=== PATIENT | male | born 1975 | race Caucasian/White ===

== ENCOUNTER 2021-01-24 18:20 | Inpatient (IN) | payer OTHER ==
[~2021-01-24] VITALS: Ht 177.8 cm; Wt 77.1 kg
[~2021-01-24 18:20] MED LIST: DICY20TA4 PO; LEVE500T8 PO; MULT-658 PO
[2021-01-24] MEDS ORDERED: LORazepam 2 MG/ML, 1ML ONE ×4 (18:59→19:57)
[2021-01-24] MEDS ORDERED: SODIUM CHLORIDE 0.9% 1,000ML IVBOLUS ONE (19:00)
[2021-01-24] MEDS ORDERED: THIAMINE 100 MG/ML, 2ML ONE (19:00)
[2021-01-24] MEDS ORDERED: THIAMINE 100 MG/ML, 2ML IM ONE (19:00)
[2021-01-24] MEDS ORDERED: SODIUM CHLORIDE FLUSH 10ML SYR IVF ONE (19:00)
[2021-01-24 19:04] LABS: BASOPHILS % (AUTO) 1 % (0-1); EOSINOPHILS % (AUTO) 1 % (1-7); LYMPHOCYTES % (AUTO) 29 % (22-44); MEAN CORPUSCULAR HEMOGLOBIN 33.3 pg (27.5-34.5); MEAN CORPUSCULAR HGB CONC 34.6 g/dL (33.2-36.2); MEAN PLATELET VOLUME 8.2 fL (7.4-10.4); MONOCYTES % (AUTO) 17 % (2-9); NEUTROPHILS % (AUTO) 52 % (42-75); PLATELET COUNT 106 x10^3/uL (130-400); RED BLOOD COUNT 3.89 x10^6/uL (4.38-5.82); RED CELL DISTRIBUTION WIDTH 13.8 % (9.4-14.8)
[2021-01-24] MEDS: LORazepam 2 MG/ML, 1ML IVPush PRN ×4 (19:07→20:04)
--- NOTE | 2021-01-24 19:20 | NUR ---
report to CRUZITO Hatch at bedside. deputy at bedside x 2.
--- NOTE | 2021-01-24 19:45 | NUR ---
Pt states "it's been 5 years" since he got here.
--- NOTE | 2021-01-24 19:58 | NUR ---
Pt [place] "[place]" when asked where he is.
--- NOTE | 2021-01-24 20:05 | NUR ---
Pt states "Lorna," when asked what his name is. MD Edmond made aware that 4/4 ativan doses administered and pt is extremely tremulous and tachy at 130s. No new orders.
--- NOTE | 2021-01-24 20:12 | NUR ---
MD Edmond back to bedside.
[2021-01-24] MEDS ORDERED: DIAZEPAM 5 MG/ML, 2ML ONE (20:16)
[2021-01-24] MEDS ORDERED: DIAZEPAM 5 MG/ML, 2ML IV ONE (20:30)
--- NOTE | 2021-01-24 20:32 | NUR ---
MD Edmond made aware of CIWA of 36.
--- NOTE | 2021-01-24 20:33 | NUR ---
No new orders.
[2021-01-24 20:58] LABS: ALANINE AMINOTRANSFERASE 107 U/L (12-78); ALBUMIN 3.3 g/dL (3.4-5.0); ANION GAP 6 mmol/L (5-15); CALCIUM 8.1 mg/dL (8.5-10.1); CHLORIDE 91 mmol/L (98-107); CREATININE 1.02 mg/dL (0.7-1.3)
[2021-01-24] MEDS ORDERED: PHENOBARBITAL SODIUM 730 MG in SODIUM CHLORIDE 0.9% 50 ML IV ONE (21:00)
[2021-01-24 21:01] LABS: ALKALINE PHOSPHATASE 101 U/L (45-117); BILIRUBIN,TOTAL 0.9 mg/dL (0.2-1.0)
--- NOTE | 2021-01-24 21:05 | NUR ---
MD Roth at bedside for eval.
--- NOTE | 2021-01-24 21:15 | NUR ---
MD Roth made aware that lab values have resulted.
--- NOTE | 2021-01-24 21:22 | NUR ---
Meds requested from pharmacy.
[2021-01-24] MEDS ORDERED: PHENOBARBITAL ETOH DETOX PER PHARMACY MC PRN (21:30)
[2021-01-24] MEDS ORDERED: PROMETHAZINE 25 MG/ML, 1ML IM PRN (21:30)
[2021-01-24] MEDS ORDERED: THIAMINE 100 MG in SODIUM CHLORIDE 0.9% 50 ML IV SCH (21:30)
[2021-01-24] MEDS ORDERED: ACETAMINOPHEN 325 MG TABLET PO PRN (21:30)
[2021-01-24] MEDS ORDERED: LABETALOL 5MG/ML, 20ML IVPush PRN (21:30)
[2021-01-24] MEDS ORDERED: POTASSIUM CHLORIDE 40 MEQ in SODIUM CHLORIDE 0.9% 500 ML IV ONE (21:30)
[2021-01-24] MEDS ORDERED: SODIUM CHLORIDE 0.9% 1,000 ML IV SCH (21:30)
[2021-01-24] MEDS: ENOXAPARIN 40 MG/0.4 ML SQ SCH (21:30)
[2021-01-24] MEDS ORDERED: LORazepam 2 MG/ML, 1ML IVPush ONE (21:30)
--- NOTE | 2021-01-24 22:20 | NUR ---
Pt transported with towel over face to decrease stimuli. Sinus tach noted on the monitor with PVCs. Pt remains tremulous and fighting against law enforcement restraints. Addendum: 01/28/21 at 1713 by JOSH Pt transported with towel over eyes to decrease stimuli. Sinus tach noted on the monitor with PVCs. Pt remains tremulous and fighting against law enforcement restraints.
[2021-01-24] MEDS ORDERED: PHENOBARBITAL SODIUM IV ONE (22:36)
[2021-01-24] MEDS ORDERED: SODIUM CHLORIDE 0.9% IV ONE (22:36)
[2021-01-24 22:54] VITALS: BP 125/84
[2021-01-24] MEDS ORDERED: MAGNESIUM SULFATE/D5W 100 ML IV ONE (23:00)
[2021-01-25] MEDS: PHENOBARBITAL SODIUM 65 MG/ML, 1ML IM SCH ×2 (04:14→15:40)
[2021-01-25] MEDS: DEXMEDETOMIDINE 400 MCG in SODIUM CHLORIDE 0.9% 96 ML IV PRN ×2 (04:51→12:47)
[2021-01-25 06:31] LABS: BASOPHILS % (AUTO) 1 % (0-1); EOSINOPHILS % (AUTO) 3 % (1-7); LYMPHOCYTES % (AUTO) 31 % (22-44); MEAN CORPUSCULAR HEMOGLOBIN 33.9 pg (27.5-34.5); MEAN PLATELET VOLUME 7.7 fL (7.4-10.4); MONOCYTES % (AUTO) 13 % (2-9); NEUTROPHILS % (AUTO) 53 % (42-75); PLATELET COUNT 96 x10^3/uL (130-400); RED CELL DISTRIBUTION WIDTH 13.4 % (9.4-14.8)
[2021-01-25 06:48] LABS: ANION GAP 7 mmol/L (5-15); CHLORIDE 102 mmol/L (98-107)
[2021-01-25 07:07] LABS: ALANINE AMINOTRANSFERASE 87 U/L (12-78); ALBUMIN 2.8 g/dL (3.4-5.0); ALKALINE PHOSPHATASE 80 U/L (45-117); BILIRUBIN,TOTAL 1.1 mg/dL (0.2-1.0); CALCIUM 7.6 mg/dL (8.5-10.1); CREATININE 0.61 mg/dL (0.7-1.3)
[2021-01-25] MEDS: DEXTROSE IV SCH (08:23)
[2021-01-25] MEDS: MVI ADULT IV SCH (08:23)
[2021-01-25] MEDS: PANTOPRAZOLE 40 MG IV IVPush SCH (08:23)
[2021-01-25] MEDS: FOLIC ACID IV SCH (08:23)
[2021-01-25] MEDS: POTASSIUM CHLORIDE 40 MEQ in SODIUM CHLORIDE 0.9% 500 ML IV SCH ×2 (08:23→13:56)
[2021-01-25] MEDS: THIAMINE 200 MG in SODIUM CHLORIDE 0.9% 50 ML IV SCH (08:23)
[2021-01-25] MEDS ORDERED: PHENOBARBITAL SODIUM 65 MG/ML, 1ML IM ONE (09:30)
[2021-01-25 09:41] LABS: MICROSCOPIC INDICATED
[2021-01-25 09:49] LABS: AMPHETAMINE SCREEN, URINE Negative (Negative); BARBITURATE SCREEN, URINE Positive (Negative); BENZODIAZEPINE SCREEN, URINE Positive (Negative); CANNABINOID SCREEN, URINE Negative (Negative); COCAINE SCREEN, URINE Negative (Negative); METHADONE SCREEN, URINE Negative (Negative); OPIATE SCREEN, URINE Negative (Negative)
[2021-01-25] MEDS ORDERED: MORPHINE SULFATE 4 MG/ML, 1ML ONE (11:35)
[2021-01-25] MEDS: MORPHINE SULFATE 4 MG/ML, 1ML IVPush PRN ×3 (11:40→23:20)
[2021-01-25] MEDS ORDERED: POTASSIUM CHLORIDE 20 MEQ in SODIUM CHLORIDE 0.9% 1,000 ML IV SCH ×2 (21:30→21:45)
[2021-01-25] MEDS: ENOXAPARIN 40 MG/0.4 ML SQ SCH (21:54)
[2021-01-25] MEDS: NS + 20MEQ KCL 1,000 ML IV SCH (21:54)
[2021-01-26] MEDS: DEXMEDETOMIDINE 400 MCG in SODIUM CHLORIDE 0.9% 96 ML IV PRN (03:14)
[2021-01-26] MEDS: PHENOBARBITAL SODIUM 65 MG/ML, 1ML IM SCH ×2 (04:00→16:40)
[2021-01-26 04:36] LABS: BASOPHILS % (AUTO) 1 % (0-1); EOSINOPHILS % (AUTO) 6 % (1-7); LYMPHOCYTES % (AUTO) 42 % (22-44); MEAN CORPUSCULAR HEMOGLOBIN 33.8 pg (27.5-34.5); MEAN CORPUSCULAR HGB CONC 34.4 g/dL (33.2-36.2); MEAN PLATELET VOLUME 7.2 fL (7.4-10.4); MONOCYTES % (AUTO) 14 % (2-9); NEUTROPHILS % (AUTO) 37 % (42-75); PLATELET COUNT 121 x10^3/uL (130-400); RED BLOOD COUNT 3.92 x10^6/uL (4.38-5.82)
[2021-01-26 04:42] LABS: ALANINE AMINOTRANSFERASE 72 U/L (12-78); ALBUMIN 2.8 g/dL (3.4-5.0); ANION GAP 4 mmol/L (5-15); CHLORIDE 106 mmol/L (98-107); CREATININE 0.64 mg/dL (0.7-1.3)
[2021-01-26 04:45] LABS: ALKALINE PHOSPHATASE 92 U/L (45-117); BILIRUBIN,TOTAL 0.9 mg/dL (0.2-1.0); CALCIUM 8.2 mg/dL (8.5-10.1); TOTAL PROTEIN 6.4 g/dL (6.4-8.2)
[2021-01-26] MEDS: NS + 20MEQ KCL 1,000 ML IV SCH (06:21)
[2021-01-26] MEDS: THIAMINE 200 MG in SODIUM CHLORIDE 0.9% 50 ML IV SCH (07:57)
[2021-01-26] MEDS: PANTOPRAZOLE 40 MG IV IVPush SCH (08:52)
[2021-01-26] MEDS: DEXTROSE IV SCH (08:53)
[2021-01-26] MEDS: FOLIC ACID IV SCH (08:53)
[2021-01-26] MEDS: MVI ADULT IV SCH (08:53)
[2021-01-26] MEDS: MORPHINE SULFATE 4 MG/ML, 1ML IVPush PRN (08:53)
[2021-01-26] MEDS ORDERED: MORPHINE SULFATE 4 MG/ML, 1ML IVPush PRN (12:30)
[2021-01-26 13:42] VITALS: BP 126/81
[2021-01-26] MEDS: THIAMINE 100MG TABLET PO SCH ×2 (16:41→21:32)
[2021-01-26 20:40] VITALS: BP 121/78
[2021-01-26] MEDS: ENOXAPARIN 40 MG/0.4 ML SQ SCH (21:32)
[2021-01-27 01:30] VITALS: BP 119/79
[2021-01-27] MEDS: PHENOBARBITAL SODIUM 65 MG/ML, 1ML IM SCH ×2 (04:23→16:00)
[2021-01-27 04:41] LABS: BASOPHILS % (AUTO) 1 % (0-1); EOSINOPHILS % (AUTO) 3 % (1-7); LYMPHOCYTES % (AUTO) 39 % (22-44); MEAN CORPUSCULAR HEMOGLOBIN 33.7 pg (27.5-34.5); MEAN CORPUSCULAR HGB CONC 34.7 g/dL (33.2-36.2); MEAN PLATELET VOLUME 7.1 fL (7.4-10.4); MONOCYTES % (AUTO) 19 % (2-9); NEUTROPHILS % (AUTO) 38 % (42-75); PLATELET COUNT 134 x10^3/uL (130-400); RED BLOOD COUNT 3.42 x10^6/uL (4.38-5.82); RED CELL DISTRIBUTION WIDTH 13.5 % (9.4-14.8)
[2021-01-27 04:51] LABS: ANION GAP 5 mmol/L (5-15); CALCIUM 8.1 mg/dL (8.5-10.1); CHLORIDE 100 mmol/L (98-107); CREATININE 0.68 mg/dL (0.7-1.3)
[2021-01-27 08:15] VITALS: BP 122/84
[2021-01-27] MEDS: THIAMINE 100MG TABLET PO SCH ×2 (08:33→16:22)
[2021-01-27] MEDS: POTASSIUM CHLORIDE 20 MEQ PACKET PO SCH ×2 (08:34→11:04)
[2021-01-27] MEDS ORDERED: FOLIC ACID 1 MG TABLET PO SCH (09:00)
[2021-01-27] MEDS ORDERED: MAGNESIUM OXIDE 400 MG TABLET PO SCH (09:00)
[2021-01-27] MEDS ORDERED: MULTIVITAMIN 1 TABLET PO SCH (09:00)
[2021-01-27] MEDS ORDERED: PHENOBARBITAL ETOH DETOX PER PHARMACY MC PRN ×2 (09:30→09:31)
[2021-01-27 13:17] VITALS: BP 117/79
[2021-01-27] MEDS ORDERED: MAGN400T50 PO (14:05)
[2021-01-27] MEDS ORDERED: MULT-482 PO (14:05)
[2021-01-27] MEDS ORDERED: THIA100T67 PO (14:05)
[2021-01-27] MEDS ORDERED: FOLI1TAB32 PO (14:05)
[2021-01-29] MEDS ORDERED: PHENOBARBITAL 20 MG/5 ML ORAL SOL PO SCH (04:00)
[2021-01-30] MEDS ORDERED: PHENOBARBITAL 20 MG/5 ML ORAL SOL PO SCH (04:00)
== END 2021-01-27 16:35 | DRG 432 ==
LOC: ED 18:43 → CCU 22:41 → 5SO 01-26 13:22
PROVIDERS: ADMIT Family Medicine; ATTEND Internal Medicine
DX: K70.10 Alcoholic hepatitis without ascites (principal); G92 Toxic encephalopathy; E87.1 Hypo-osmolality and hyponatremia; F10.231 Alcohol dependence with withdrawal delirium; D63.8 Anemia in other chronic diseases classified elsewhere; D69.6 Thrombocytopenia, unspecified; E83.51 Hypocalcemia; E87.6 Hypokalemia; E88.09 Other disorders of plasma-protein metabolism, not elsewhere classified; K70.9 Alcoholic liver disease, unspecified; E83.42 Hypomagnesemia; R74.02 Elevation of levels of lactic acid dehydrogenase [LDH]; R56.9 Unspecified convulsions; Z78.1 Physical restraint status
CPT/HCPCS: 36415; 71045; 80048; 80053; 80307; 80320; 81001; 82550; 83605; 83735; 84100; 84132; 85025; 87081; 93005; 96365; 96375; 99292; G0378; J1650; J2560; J3360; J3411; J3480; J7070; C9113; G0480; J2060; J2270; J7030; J7040